=== PATIENT | female | born 2000 | race African-American/Black ===

== ENCOUNTER 2022-05-25 10:37 | Outpatient (CLI) | payer OTHER, SELFPAY ==
--- NOTE | ~2022-05-25 | US_ITS ---
EXAMINATION: US breast LT limited HISTORY: Palpable lump in the upper inner quadrant of the left breast TECHNIQUE: Limited left breast ultrasound is performed. FINDINGS: There is a 2.0 x 1.0 cm oval, circumscribed, parallel, hypoechoic mass with no posterior fe atures or internal vascularity at the 11:00 location 12 cm from the nipple corresponding to the palpa ble abnormality of concern. IMPRESSION: Probable fibroadenoma of the left breast. Recommend continued clinical follow-up and targeted left br east ultrasound in six months. BI-RADS category 3, probably benign findings. Reviewed, dictated and finalized at location A. [employer] IMPRESSION: Probable fibroadenoma of the left breast. Recommend continued clinical follow-u p and targeted left breast ultrasound in six months. BI-RADS category 3, probably benign findings.
== END 2022-05-25 10:38 | disposition home or self-care (01) ==
PROVIDERS: Visit Provider Nurse Practitioner Obstetrics & Gynecology
DX: N63.22 Unspecified lump in the left breast, upper inner quadrant (principal)
CPT/HCPCS: 76642